=== PATIENT | male | born 1990 | race Caucasian/White ===

== ENCOUNTER 2024-07-27 10:14 | Emergency (ER) | payer MEDICAID ==
[~2024-07-27] VITALS: Ht 185.4 cm; Wt 74.0 kg
[2024-07-27 10:27] VITALS: O2SAT 99
[2024-07-27] MEDS ORDERED: AMOX1TAB16 MT (11:01)
[2024-07-27 12:19] VITALS: BP 126/82; PULSE 83; RESP 16; TEMP 36.7; O2SAT 99
== END 2024-07-27 12:20 | disposition home or self-care (01) ==
LOC: ER 10:14
DX: S71.131A Puncture wound without foreign body, right thigh, initial encounter (principal); Z48.00 Encounter for change or removal of nonsurgical wound dressing; Z79.899 Other long term (current) drug therapy; Z98.890 Other specified postprocedural states; W54.0XXA Bitten by dog, initial encounter; Y93.89 Activity, other specified; Y92.89 Other specified places as the place of occurrence of the external cause; Y99.8 Other external cause status
CPT/HCPCS: 99283